=== PATIENT | female | born 1930 | race Caucasian/White ===

== ENCOUNTER 2018-06-08 12:36 | Emergency (ER) | payer MEDICARE ==
--- NOTE | 2018-06-08 13:02 | ERPHSYRPT ---
- History of Present Illness Time Seen by Provider: 06/08/18 12:51 Source: patient, family Exam Limitations: no limitations Physician History: The patient is an 88-year-old female with her family who complains that she had mildly slurred speech yesterday and was sleeping most of the day. The patient denies any pain. The patient agrees that she was sleeping more yesterday and had trouble pronouncing her "C's". Both she and her family agree that she is better today but still has some problems with her speech. They called her doctor who advised them to come to the ER. Her past medical history is significant for hypertension and high cholesterol. Timing/Duration: yesterday, improved Severity: mild Modifying Factors: Improves With: nothing Associated Symptoms: denies symptoms Allergies/Adverse Reactions: penicillin G Allergy (Verified 06/08/18 12:54) Home Medications: Aspirin 81 gm Chew [Baby Aspirin 81 mg Chew] 81 mg PO DAILY 06/08/18 [ History] Atorvastatin Calcium 10 mg PO DAILY 06/08/18 [History] Nebivolol HCl 5 MG [Bystolic 5 MG] 5 mg PO DAILY 06/08/18 [History] - Review of Systems Constitutional: Weakness Eyes: No Symptoms Ears, Nose, & Throat: No Symptoms Respiratory: No Cough, No Dyspnea Cardiac: No Chest Pain, No Edema, No Syncope Abdominal/Gastrointestinal: No Abdominal Pain, No Nausea, No Vomiting, No Diarrhea Genitourinary Symptoms: No Dysuria Musculoskeletal: No Back Pain, No Neck Pain Skin: No Rash Neurological: Speech Changes Psychological: No Symptoms Endocrine: No Symptoms Hematologic/Lymphatic: No Symptoms Immunological/Allergic: No Symptoms All Other Systems: Reviewed and Negative - Nursing Vital Signs Nursing Vital Signs: Initial Vital Signs Temperature 97.4 F 06/08/18 12:46 Pulse Rate 72 06/08/18 12:46 Respiratory Rate 18 06/08/18 12:46 Blood Pressure 164/88 06/08/18 12:46 O2 Sat by Pulse Oximetry 95 06/08/18 12:46 Pain Scale Pain Intensity 0 - Physical Exam General Appearance: no apparent distress, alert Eye Exam: PERRL/EOMI, eyes nml inspection Ears, Nose, Throat Exam: normal ENT inspection, TMs normal, pharynx normal, moist mucous membranes Neck Exam: normal inspection, non-tender, supple, full range of motion Respiratory Exam: normal breath sounds, lungs clear, No respiratory distress Cardiovascular Exam: regular rate/rhythm, normal heart sounds, normal peripheral pulses Gastrointestinal/Abdomen Exam: soft, normal bowel sounds, No tenderness, No mass Pelvic Exam: not done Rectal Exam: not done Back Exam: normal inspection, normal range of motion, No CVA tenderness, No vertebral tenderness Extremity Exam: normal inspection, normal range of motion, pelvis stable Neurologic Exam: alert, oriented x 3, cooperative, normal mood/affect, nml cerebellar function, nml station & gait, sensation nml, slurred speech (very mild), No motor deficits Skin Exam: normal color, warm, dry, No rash Lymphatic Exam: No adenopathy SpO2 Interpretation: normal Oxygen Delivery: Room Air - Course EKG Interpreted by Me: RATE, Sinus Rhythm, NORMAL AXIS, NORMAL INTERVALS, NORMAL QRS, NORMAL ST-T - CT Exams Head CT Interpretation: Negative (nonacute senile brain), Tele-radiologist Report ( per Dr Jiménez.) Ordered Tests: Active Orders 24 hr Category Date Time Status EKG-ER Only STAT Care 06/08/18 13:05 Active HEAD WITHOUT CONTRAST [CT] Stat Exams 06/08/18 13:06 Completed BMP Stat Lab 06/08/18 14:05 Received CBC W DIFF Stat Lab 06/08/18 14:05 Completed Lactic Acid Stat Lab 06/08/18 14:00 Completed Manual Differential NC Stat Lab 06/08/18 14:05 Completed UA W/RFX UR CULTURE Stat Lab 06/08/18 14:05 Received Lab/Rad Data: Laboratory Result Diagrams 06/08/18 14:05 06/08/18 14:05 Laboratory Results 06/08/18 06/08/18 06/08/18 Range/Units 14:05 14:05 14:05 WBC 7.0 (4.0-10.5) K/mm3 RBC 3.28 L (4.1-5.4) M/mm3 Hgb 11.3 L (12.0-16.0) gm/dl Hct 33.0 L (35-47) % MCV 100.6 H (78-100) fl MCH 34.4 H (26-32) pg MCHC 34.2 (32-36) g/dl RDW 22.4 H (11.5-14.0) % Plt Count 328 (150-450) K/mm3 MPV 8.9 (6-9.5) fl Sodium 143 (137-145) mmol/L Potassium 4.3 (3.5-5.1) mmol/L Chloride 105 (98-107) mmol/L Carbon Dioxide 27 (22-30) mmol/L Anion Gap 14.5 (5-15) MEQ/L BUN 16 (7-17) mg/dL Creatinine 0.79 (0.52-1.04) mg/dL Estimated GFR > 60.0 ML/MIN Glucose 94 (74-106) mg/dL Lactic Acid (0.4-2.0) Calcium 10.8 H (8.4-10.2) mg/dL Ur Collection Type CLEAN CATCH Urine Color LT.YELLOW (YELLOW) Urine Appearance CLEAR (CLEAR) Urine pH 8.0 (5-6) Ur Specific [place] 1.005 (1.005-1.025) Urine Protein NEGATIVE (Negative) Urine Ketones NEGATIVE (NEGATIVE) Urine Blood NEGATIVE (0-5) Abiodun/ul Urine Nitrite NEGATIVE (NEGATIVE) Urine Bilirubin NEGATIVE (NEGATIVE) Urine Urobilinogen NORMAL (0-1) mg/dL Ur Leukocyte Esterase NEGATIVE (NEGATIVE) Urine Culture Reflexed NO (NO) Urine Glucose NEGATIVE (NEGATIVE) mg/dL Specimen Received 06/08/18 1430 06/08/18 Range/Units 14:00 WBC (4.0-10.5) K/mm3 RBC (4.1-5.4) M/mm3 Hgb (12.0-16.0) gm/dl Hct (35-47) % MCV (78-100) fl MCH (26-32) pg MCHC (32-36) g/dl RDW (11.5-14.0) % Plt Count (150-450) K/mm3 MPV (6-9.5) fl Sodium (137-145) mmol/L Potassium (3.5-5.1) mmol/L Chloride (98-107) mmol/L Carbon Dioxide (22-30) mmol/L Anion Gap (5-15) MEQ/L BUN (7-17) mg/dL Creatinine (0.52-1.04) mg/dL Estimated GFR ML/MIN Glucose (74-106) mg/dL Lactic Acid 1.2 (0.4-2.0) Calcium (8.4-10.2) mg/dL Ur Collection Type Urine Color (YELLOW) Urine Appearance (CLEAR) Urine pH (5-6) Ur Specific [place] (1.005-1.025) Urine Protein (Negative) Urine Ketones (NEGATIVE) Urine Blood (0-5) Abiodun/ul Urine Nitrite (NEGATIVE) Urine Bilirubin (NEGATIVE) Urine Urobilinogen (0-1) mg/dL Ur Leukocyte Esterase (NEGATIVE) Urine Culture Reflexed (NO) Urine Glucose (NEGATIVE) mg/dL Specimen Received - Progress Progress: improved Counseled pt/family regarding: lab results, diagnosis, rad results - Departure Time of Disposition: 14:55 Departure Disposition: Home Clinical Impression: Tiredness Condition: Stable Critical Care Time: No Referrals: RODO SERRANO MD [Primary Care Provider] - Additional Instructions: You had a mild episode of tiredness yesterday with some very mild speech difficulty. All other lab work and your head CT showed no abnormalities. Your urinalysis was normal. Follow-up with you he r primary medical doctor as needed.
--- NOTE | 2018-06-08 13:34 | XRAY ---
Indication: Slurred speech and fatigue. Multiple contiguous axial images obtained through the head without contrast. Comparison: None Age-appropriate global atrophy and mild periventricular degenerative micro-ischemia bilaterally. No acute intracranial hemorrhage, abnormal extra-axial fluid collection, or mass effect. Fourth ventricle is midline without hydrocephalus. Bony calvarium intact. Visualized paranasal sinuses and mastoid air cells are clear. Impression: Nonacute senile brain. CT DI 67.60
[2018-06-08 14:01] VITALS: BP 151/74; PULSE 62; O2SAT 95
[2018-06-08 14:05] LABS: Hemoglobin 11.3 gm/dl (12.0-16.0); Mean Cell Volume 100.6 fl (78-100); Mean Corpuscular Hgb Concent. 34.2 g/dl (32-36); Mean Platelet Volume 8.9 fl (6-9.5); Platelet Count 328 K/mm3 (150-450); Red Blood Count 3.28 M/mm3 (4.1-5.4); Red Cell Distribution Width 22.4 % (11.5-14.0)
[2018-06-08 14:07] LABS: Mean Corpuscular Hemoglobin 34.4 pg (26-32)
[2018-06-08 14:22] LABS: ANION GAP 14.5 MEQ/L (5-15); BLOOD UREA NITROGEN 16 mg/dL (7-17); CHLORIDE 105 mmol/L (98-107); Calcium 10.8 mg/dL (8.4-10.2); Carbon Dioxide 27 mmol/L (22-30); Creatinine 1 0.79 mg/dL (0.52-1.04); Glucose 94 mg/dL (74-106); Potassium 4.3 mmol/L (3.5-5.1); SODIUM 143 mmol/L (137-145)
[2018-06-08 14:42] LABS: Appearance CLEAR (CLEAR); Bilirubin NEGATIVE (NEGATIVE); Blood NEGATIVE Ery/ul (0-5); Glucose NEGATIVE (NEGATIVE); Ketones NEGATIVE (NEGATIVE); Leukocyte Esterase NEGATIVE (NEGATIVE); Nitrite NEGATIVE (NEGATIVE); Protein,Urine Dip NEGATIVE (Negative); Specific Gravity 1.005 (1.005-1.025); Urobilinogen NORMAL mg/dL (0-1)
[2018-06-08 14:52] LABS: Basophil 1 % (0.0-1.0); Eosinophil 4 % (0.00-3.0); Lymphocytes 39 % (24-44); Monocyte 9 % (0.0-12.0); Neutrophils 47 % (36.0-66.0); Platelet Estimate NORMAL (NORMAL); Total Cells Counted 100
[2018-06-08 14:53] LABS: ANISOCYTOSIS 2+; Basophilic Stippling RARE; Hypochromia 1+; Poikilocytosis 1+; Polychromasia 1+; Schistocytes 1+
== END 2018-06-08 15:12 | disposition home or self-care (01) ==
LOC: ED 12:36
DX: R53.83 Other fatigue (principal); R53.1 Weakness; R47.81 Slurred speech; Z79.82 Long term (current) use of aspirin; Z79.899 Other long term (current) drug therapy
CPT/HCPCS: 36415; 70450; 80048; 81002; 83605; 85025; 93005; 99284

== ENCOUNTER 2018-07-04 14:06 | Inpatient (IN) | payer MEDICARE ==
[2018-07-04] MEDS ORDERED: TYLENOL 325 MG PO STA (14:23)
--- NOTE | 2018-07-04 14:29 | ERPHSYRPT ---
- History of Present Illness Time Seen by Provider: 07/04/18 14:15 Source: patient, family Exam Limitations: no limitations Physician History: patient presents with CC of sudden chills today; hasn't taken temp; no travel; no exposures; no sore throat, ear ache, head ache, cough, sob, abd pain, diarrhea or symptoms; no joint pains; had one episode of N&V x 1 this am; resolved; no prior hx; otherwise healthy Timing/Duration: today, hour(s) (2), sudden, improved Fever Severity: moderate Fever Therapy SENIOR [employer] DEVELOPER: none Associated Symptoms: nausea/vomiting (x1 earlier today) International travel in last 2 weeks: No Allergies/Adverse Reactions: penicillin G Allergy (Verified 06/08/18 12:54) Home Medications: Aspirin 81 gm Chew [Baby Aspirin 81 mg Chew] 81 mg PO DAILY 06/08/18 [ History] Atorvastatin Calcium 10 mg PO DAILY 06/08/18 [History] Nebivolol HCl 5 MG [Bystolic 5 MG] 5 mg PO DAILY 07/04/18 [History] Hx Tetanus, Diphtheria Vaccination/Date Given: Yes Hx Influenza Vaccination/Date Given: Yes Hx Pneumococcal Vaccination/Date Given: No - Review of Systems Constitutional: Fever, Chills Eyes: No Symptoms Ears, Nose, & Throat: No Symptoms Respiratory: No Cough, No Dyspnea, No Wheezing Cardiac: No Chest Pain, No Palpitations, No Syncope Abdominal/Gastrointestinal: Nausea, Vomiting (x1), No Abdominal Pain, No Diarrhea, No Constipation Genitourinary Symptoms: Frequency, No Dysuria, No Hematuria, No Hesitancy, No Incontinence, No Flank Pain Musculoskeletal: No Symptoms Skin: No Symptoms Neurological: No Symptoms Psychological: No Symptoms Endocrine: No Symptoms Hematologic/Lymphatic: No Symptoms Immunological/Allergic: No Symptoms - Past Medical History Pertinent Past Medical History: Yes Cardiac History: High Cholesterol, Hypertension - Past Surgical History Past Surgical History: Yes Female Surgical History: Hysterectomy - Social History Smoking Status: Never smoker Exposure to second hand smoke: No Alcohol Use: None Drug Use: none Patient Lives Alone: No - Female History Hx Now: No - Nursing Vital Signs Nursing Vital Signs: Initial Vital Signs Temperature 102.1 F 07/04/18 14:23 Pulse Rate 94 H 07/04/18 14:23 Respiratory Rate 20 07/04/18 14:23 Blood Pressure 111/55 07/04/18 14:23 O2 Sat by Pulse Oximetry 89 L 07/04/18 14:23 Pain Scale Pain Intensity 0 - Physical Exam General Appearance: mild distress, alert, thin Eye Exam: PERRL/EOMI, eyes nml inspection, No photophobia ENT Exam: normal ENT inspection, no apparent trauma, hearing grossly normal, TMs normal, pharynx normal Neck Exam: normal inspection, non-tender, supple, full range of motion, No JVD, No lymphadenopathy (R), No lymphadenopathy (L), No stiff neck, No carotid bruit , No meningismus Respiratory Exam: normal breath sounds, chest non-tender, lungs clear, no respiratory distress, No crackles/rales, No rhonchi, No wheezing Cardiovascular/Chest Exam: normal heart sounds, regular rate/rhythm, normal peripheral pulses, No murmur, No edema, No JVD Gastrointestinal/Abdominal Exam: soft, non tender, no distention, no mass, no guarding, no organomegaly, no pulsatile mass, normal bowel sounds Pelvic Exam: deferred Rectal Exam: deferred Extremity Exam: non-tender, normal range of motion, normal inspection, normal capillary refill, no calf tenderness, no pedal edema Neurologic Exam: alert, oriented x 3, cooperative, guard immigration II-XII nml as tested, normal mood/affect Skin Exam: normal color, warm (increased), dry, No rash, No petechiae, No cyanosis Lymphatic: No adenopathy SpO2 Interpretation: normal SpO2: 94 Oxygen Delivery: Room Air - Course Nursing assessment & vital signs reviewed: Yes - Radiology Exams Chest X-ray Interpretation: Reviewed by me, Teleradiologist Report, No Pneumonia, No Pneumothorax, Nml Heart Size, No Infiltrates, Other (aging chest; old right rib fractures, hyperinflation) Ordered Tests: Active Orders 24 hr Category Date Time Status Up With Assistance ROUTINE Activity 07/04/18 16:18 Ordered Call Admit Doctor for Orders ON ADMISSION Care 07/04/18 16:20 Ordered Loop Drier Operator STAT Care 07/04/18 14:21 Active Cath for Specimen-Straight STAT Care 07/04/18 14:23 Active Code Status Order ROUTINE Care 07/04/18 16:18 Ordered Fall Protocol ROUTINE Care 07/04/18 16:20 Ordered IV Care Q6H Care 07/04/18 16:18 Ordered IV Insertion STAT Care 07/04/18 14:[address] in Observation ROUTINE Care 07/04/18 16:18 Ordered Pulse Oximetry (ED) STAT Care 07/04/18 14:21 Active Re-Check Vital Signs STAT Care 07/04/18 14:23 Active Rectal Temperature STAT Care 07/04/18 14:23 Active Evan Alfaro, Apply ROUTINE Care 07/04/18 16:18 Ordered Weight,Daily 0600 Care 07/04/18 16:18 Ordered Regular Diet Diet 07/04/18 Dinner Ordered CHEST 1 VIEW (PORTABLE) Stat Exams 07/04/18 14:21 Completed BLOOD CULTURE Stat Lab 07/04/18 14:35 Received CBC W DIFF Stat Lab 07/04/18 14:35 Completed CMP Stat Lab 07/04/18 14:35 Completed CULTURE,URINE Stat Lab 07/04/18 15:00 Received Lactic Acid Stat Lab 07/04/18 14:35 Completed Manual Differential NC Stat Lab 07/04/18 14:35 Completed UA W/ MICROSCOPIC Stat Lab 07/04/18 15:00 Completed Oxygen NASAL CANNULA 2 lpm RT 07/04/18 16:18 Ordered Pulse Oximetry CONTINUOUS RT 07/04/18 16:21 Ordered Transfer Order Routine Transfer 07/04/18 Ordered Medication Summary Generic Name Dose Route Start Last Admin Trade Name Freq PRN Reason Stop Dose Admin Acetaminophen 650 mg 07/04/18 16:18 Tylenol 325 Mg PO 08/03/18 16:17 Q4H PRN PRN PAIN AND/OR FEVER Sodium Chloride 1,000 mls @ 100 mls/hr 07/04/18 14:30 07/04/18 14:42 Sodium Chloride 0.9% 1000 Ml IV 08/03/18 14:29 100 mls/hr .Q10H MANNY Administration Sodium Chloride 1,000 mls @ 100 mls/hr 07/04/18 16:30 Sodium Chloride 0.9% 1000 Ml IV 08/03/18 16:29 .Q10H MANNY Discontinued Medications Generic Name Dose Route Start Last Admin Trade Name Freq PRN Reason Stop Dose Admin Acetaminophen 650 mg 07/04/18 14:23 07/04/18 14:42 Tylenol 325 Mg PO 07/04/18 14:24 650 mg STAT STA Administration Acetaminophen Confirm 07/04/18 14:40 Tylenol 325 Mg Administered 07/04/18 14:41 Dose 650 mg .ROUTE .STK-MED ONE Lab/Rad Data: Laboratory Result Diagrams 07/04/18 14:35 07/04/18 14:35 Laboratory Results 07/04/18 07/04/18 07/04/18 Range/Units 15:00 14:40 14:35 WBC (4.0-10.5) K/mm3 RBC (4.1-5.4) M/mm3 Hgb (12.0-16.0) gm/dl Hct (35-47) % MCV (78-100) fl MCH (26-32) pg MCHC (32-36) g/dl RDW (11.5-14.0) % Plt Count (150-450) K/mm3 MPV (6-9.5) fl Sodium 137 (137-145) mmol/L Potassium 4.0 (3.5-5.1) mmol/L Chloride 103 (98-107) mmol/L Carbon Dioxide 25 (22-30) mmol/L Anion Gap 13.4 (5-15) MEQ/L BUN 16 (7-17) mg/dL Creatinine 0.78 (0.52-1.04) mg/dL Estimated GFR > 60.0 ML/MIN Glucose 109 H (74-106) mg/dL Lactic Acid (0.4-2.0) Calcium 10.6 H (8.4-10.2) mg/dL Total Bilirubin 1.10 (0.2-1.3) mg/dL AST 26 (14-36) U/L ALT 16 (0-35) U/L Alkaline Phosphatase 97 (38-126) U/L Serum Total Protein 7.4 (6.3-8.2) g/dL Albumin 4.3 (3.5-5.0) g/dL Ur Collection Type CATH Urine Color YELLOW (YELLOW) Urine Appearance CLOUDY (CLEAR) Urine pH 8.0 (5-6) Ur Specific [place] 1.010 (1.005-1.025) Urine Protein TRACE (Negative) Urine Ketones MODERATE (NEGATIVE) Urine Blood 50 (0-5) Abiodun/ul Urine Nitrite NEGATIVE (NEGATIVE) Urine Bilirubin NEGATIVE (NEGATIVE) Urine Urobilinogen NORMAL (0-1) mg/dL Ur Leukocyte Esterase TRACE (NEGATIVE) Urine Microscopic RBC 2-5 (0-2) /HPF Urine Microscopic WBC 50-100 (0-5) /HPF Ur Epithelial Cells RARE (FEW) /HPF Urine Bacteria MANY (NEGATIVE) /HPF Hyaline Casts 0-2 (0-2) /LPF Urine Glucose NEGATIVE (NEGATIVE) mg/dL Influenza Type A Ag NEGATIVE (NEGATIVE) Influenza Type B Ag NEGATIVE (NEGATIVE) RSV (PCR) NEGATIVE (Negative) Specimen Received 07-04-18 1515 07/04/18 07/04/18 Range/Units 14:35 14:35 WBC 12.4 H (4.0-10.5) K/mm3 RBC 3.20 L (4.1-5.4) M/mm3 Hgb 11.1 L (12.0-16.0) gm/dl Hct 32.2 L (35-47) % MCV 100.6 H (78-100) fl MCH 34.6 H (26-32) pg MCHC 34.5 (32-36) g/dl RDW 22.1 H (11.5-14.0) % Plt Count 323 (150-450) K/mm3 MPV 9.2 (6-9.5) fl Sodium (137-145) mmol/L Potassium (3.5-5.1) mmol/L Chloride (98-107) mmol/L Carbon Dioxide (22-30) mmol/L Anion Gap (5-15) MEQ/L BUN (7-17) mg/dL Creatinine (0.52-1.04) mg/dL Estimated GFR ML/MIN Glucose (74-106) mg/dL Lactic Acid 1.0 (0.4-2.0) Calcium (8.4-10.2) mg/dL Total Bilirubin (0.2-1.3) mg/dL AST (14-36) U/L ALT (0-35) U/L Alkaline Phosphatase (38-126) U/L Serum Total Protein (6.3-8.2) g/dL Albumin (3.5-5.0) g/dL Ur Collection Type Urine Color (YELLOW) Urine Appearance (CLEAR) Urine pH (5-6) Ur Specific [place] (1.005-1.025) Urine Protein (Negative) Urine Ketones (NEGATIVE) Urine Blood (0-5) Abiodun/ul Urine Nitrite (NEGATIVE) Urine Bilirubin (NEGATIVE) Urine Urobilinogen (0-1) mg/dL Ur Leukocyte Esterase (NEGATIVE) Urine Microscopic RBC (0-2) /HPF Urine Microscopic WBC (0-5) /HPF Ur Epithelial Cells (FEW) /HPF Urine Bacteria (NEGATIVE) /HPF Hyaline Casts (0-2) /LPF Urine Glucose (NEGATIVE) mg/dL Influenza Type A Ag (NEGATIVE) Influenza Type B Ag (NEGATIVE) RSV (PCR) (Negative) Specimen Received reviewed - Progress Progress: improved, re-examined (after meds) Progress Note: 07/04/18 14:30 will start an IV and do Fever work up, monitor and recheck temp was 102.3 rectally and will give tylenol 07/04/18 16:04 fever down; CXR NAD; labs show elevated WBC of 12; infu test all neg; lactic acid ok; UA shows infection on cath specimen and cultured; renal function and lytes ok; patient dropped her O2 sat on RA to 88 at rest and placed on O2 at 2 l nc and improved to 95% rechecked with family at bedside; reviewed findings and dr Serrano consulted for disposition 07/04/18 16:16 Dr Serrano consulted and will admit; Patient and family informed 07/04/18 16:23 started on Rocephin in ED Discussed with : Shelly (consulted and will palce in OBS) Counseled pt/family regarding: lab results, diagnosis, need for follow-up, rad results - Departure Time of Disposition: 16:17 Departure Disposition: Observation Clinical Impression: FUO (fever of unknown origin), UTI (urinary tract infection), low pulse ox 88 RA Condition: Fair Critical Care Time: No Referrals: RODO SERRANO MD [Primary Care Provider] -
[2018-07-04] MEDS ORDERED: Sodium Chloride 0.9% 1000 ML 1,000 ML IV SCH ×2 (14:30→16:30)
[2018-07-04] MEDS ORDERED: TYLENOL 325 MG ONE (14:40)
[2018-07-04 14:53] LABS: Hematocrit 32.2 % (35-47); Hemoglobin 11.1 gm/dl (12.0-16.0); Mean Cell Volume 100.6 fl (78-100); Mean Corpuscular Hgb Concent. 34.5 g/dl (32-36); Mean Platelet Volume 9.2 fl (6-9.5); Platelet Count 323 K/mm3 (150-450); Red Cell Distribution Width 22.1 % (11.5-14.0); White Blood Count 12.4 K/mm3 (4.0-10.5)
[2018-07-04 15:10] LABS: Mean Corpuscular Hemoglobin 34.6 pg (26-32)
[2018-07-04 15:16] LABS: Appearance CLOUDY (CLEAR); Bilirubin NEGATIVE (NEGATIVE); Blood 50 Ery/ul (0-5); Glucose NEGATIVE (NEGATIVE); Ketones MODERATE (NEGATIVE); Leukocyte Esterase TRACE (NEGATIVE); Nitrite NEGATIVE (NEGATIVE); Protein,Urine Dip TRACE (Negative); Urobilinogen NORMAL mg/dL (0-1)
[2018-07-04 15:17] LABS: Bacteria MANY /HPF (NEGATIVE); Epithelial Cells RARE /HPF (FEW); Hyaline Casts 0-2 /LPF (0-2); WBC 50-100 /HPF (0-5)
--- NOTE | 2018-07-04 15:17 | XRAY ---
Indication: Possible sepsis. Comparison: None Portable chest hyperinflated and clear. Heart is not enlarged for AP portable technique. Thoracic aorta mildly arteriosclerotic with descending tortuosity. Bony thorax intact with mild osteopenia, degenerative changes, and old right upper rib fractures. Impression: Nonacute hyperinflated chest with chronic features.
[2018-07-04 15:27] LABS: ALBUMIN 4.3 g/dL (3.5-5.0); ALKALINE PHOSPHATASE 97 U/L (38-126); ANION GAP 13.4 MEQ/L (5-15); BLOOD UREA NITROGEN 16 mg/dL (7-17); CHLORIDE 103 mmol/L (98-107); Calcium 10.6 mg/dL (8.4-10.2); Carbon Dioxide 25 mmol/L (22-30); Creatinine 1 0.78 mg/dL (0.52-1.04); Glucose 109 mg/dL (74-106); SGOT/AST 26 U/L (14-36); SGPT/ALT 16 U/L (0-35); SODIUM 137 mmol/L (137-145); Total Protein 7.4 g/dL (6.3-8.2)
[2018-07-04 15:28] LABS: INFLUENZA A NEGATIVE (NEGATIVE); INFLUENZA B NEGATIVE (NEGATIVE); RESPIRATORY SYNCTIAL VIRUS NEGATIVE (Negative)
[2018-07-04] MEDS ORDERED: TYLENOL 325 MG PO PRN (16:18)
[2018-07-04] MEDS ORDERED: ROCEPHIN 1 Gm-D5w 50 ml Bag** 1 G/50 ML IVPB IV ONE ×2 (16:22→16:24)
[2018-07-04 19:40] LABS: ANISOCYTOSIS 2+; BAND 19 % (0.0-2.0); Basophilic Stippling 1+; Eosinophil 1 % (0.00-3.0); Hypochromia 1+; Lymphocytes 7 % (24-44); Macrocytosis 1+; Monocyte 8 % (0.0-12.0); Neutrophils 65 % (36.0-66.0); Poikilocytosis 1+; Total Cells Counted 100
[2018-07-04 19:41] LABS: Platelet Estimate NORMAL (NORMAL); Schistocytes 1+
[2018-07-04] MEDS ORDERED: Zocor 10MG PO ONE (22:00)
[2018-07-04] MEDS ORDERED: BABY ASPIRIN 81 MG CHEW PO ONE (22:00)
[2018-07-04] MEDS ORDERED: LEVOFLOXACIN 750MG/150ML D5W 750 MG/150 ML BAG IV ONE (22:26)
[2018-07-04] MEDS ORDERED: Sodium Chloride 0.9% 1000 ML 1,000 ML IV STA (22:31)
[2018-07-04 23:02] LABS: A-aADO2 94; ABG HEMOGLOBIN 10.9; ABG POTASSIUM 4.8 (3.5-5.1); ABG SITE LEFT RADIAL; ALLEN TEST OK? YES; ARTERIAL BLD GAS O2 SATURATION 90.7 % (95-100); ARTERIAL BLOOD GAS BASE EXCESS -4.3 (-2.0-2.0); ARTERIAL BLOOD GAS FIO2 28 %; ARTERIAL BLOOD GAS PCO2 42 mmHg (35-45); ARTERIAL BLOOD GAS PO2 53 mmHg (75-100); ARTERIAL BLOOD GAS pH 7.32 (7.35-7.45); CARBOXYHEMOGLOBIN 2.8 % THgb (0.0-6.9); HCO3- 21.6 (22-28); HGB O2 SAT 87.3 g/dF (94-100); Methhemoglobin 0.9 % (1.4-1.5); paO2 pAO1 0.36
[2018-07-04 23:10] LABS: Lactic Acid 4.5 (0.4-2.0)
[2018-07-04] MEDS: ENOXAPARIN SODIUM SQ SCH (23:33)
[2018-07-05] MEDS ORDERED: Sodium Chloride 0.9% 1000 ML 1,000 ML IV SCH
[2018-07-05] MEDS: Sodium Chloride 0.9% 1000 ML 1,000 ML IV SCH ×3 (02:23→18:40)
--- NOTE | 2018-07-05 08:52 | PCM.HP ---
History of Present Illness - Chief Complaint Chief Complaint: c/o fever with chills for 1 day History of Present Illness: is a 88 year old female patient presents with CC of sudden chills today ; hasn't taken temp; no travel; no exposures; no sore throat, ear ache, head ache, cough, sob, abd pain, diarrhea or symptoms; no joint pains; had one episode of N&V x 1 this am; resolved; no prior hx; otherwise healthy Timing/Duration: today, hour(s) (2), sudden, improved Fever Severity: moderate Fever Therapy UNDERWRITING SALES REPRESENTATIVE: none Associated Symptoms: nausea/vomiting (x1 earlier today). - Review of Systems Constitutional: Fever, Chills Eyes: No Symptoms Ears, Nose, & Throat: No Symptoms Respiratory: No Cough, No Short Of Breath Cardiac: No Chest Pain, No Edema, No Syncope Abdominal/Gastrointestinal: No Abdominal Pain, No Nausea, No Vomiting, No Diarrhea Genitourinary Symptoms: No Dysuria Musculoskeletal: No Back Pain, No Neck Pain Skin: No Rash Neurological: No Dizziness, No Focal Weakness, No Sensory Changes Psychological: No Symptoms Endocrine: No Symptoms Hematologic/Lymphatic: No Symptoms Immunological/Allergic: No Symptoms Medications & Allergies Home Medications: Home Medication List Aspirin 81 gm Chew [Baby Aspirin 81 mg Chew] 81 mg PO HS 06/08/18 [ History Confirmed 07/04/18] Atorvastatin Calcium 10 mg PO HS 06/08/18 [History Confirmed 07/04/18] Nebivolol HCl 5 MG [Bystolic 5 MG] 5 mg PO DAILY 07/04/18 [History Confirmed 07/04/18] Allergies/Adverse Reactions: Allergies Allergy/AdvReac Type Severity Reaction Status Date / Time penicillin G Allergy Verified 06/08/18 12:54 - Past Medical History Past Medical History: Yes Neurological History: No Pertinent History ENT History: Cataracts, Macular Degeneration Cardiac History: High Cholesterol, Hypertension Respiratory History: No Pertinent History Endocrine Medical History: No Pertinent History Musculoskelatal History: Arthritis GI Medical History: No Pertinent History History: No Pertinent History Pyscho-Social History: No Pertinent History Reproductive Disorders: No Pertinent History - Female History Are you now?: No - Past Surgical History Past Surgical History: Yes Neuro Surgical History: No Pertinent History, Brain Shunt Cardiac History: No Pertinent History Respiratory Surgery: No Pertinent History GI Surgical History: No Pertinent History Musculskeletal Surgical Hx: No Pertinent History Female Surgical History: Hysterectomy - Social History Smoking Status: Former smoker Exposure to second hand smoke: No Alcohol: None Drug Use: none - Physical Exam Vital Signs: Vital Signs - 24 hr Temp Pulse Resp BP Pulse Ox 07/05/18 07:26 98 07/05/18 07:19 98.2 F 80 20 104/64 96 07/05/18 04:23 98.5 F 76 18 98/53 97 07/05/18 00:25 99.0 F 07/04/18 23:33 103.1 F 100 H 20 109/56 95 07/04/18 22:15 96 07/04/18 19:35 98.6 F 67 20 97/50 96 07/04/18 19:16 96 07/04/18 17:45 99 F 76 20 92/49 86 L 07/04/18 17:38 76 18 91 L 07/04/18 17:37 91 L 07/04/18 16:54 100.4 F 70 18 107/51 95 07/04/18 16:23 94 L 07/04/18 16:17 100.6 F 74 18 107/51 97 07/04/18 15:35 100.6 F 77 18 123/75 90 L 07/04/18 14:59 102.1 F 85 20 111/55 94 L 07/04/18 14:23 102.1 F 94 H 20 111/55 89 L Oxygen-Last 24 hours O2 Percentage 5 Liters = 40% O2 Percentage 5 Liters = 40% O2 Percentage 5 Liters = 40% O2 Percentage 2 Liters = 28% O2 Percentage 2 Liters = 28% O2 Percentage 2 Liters = 28% General Appearance: no apparent distress, alert Neurologic Exam: alert, oriented x 3, cooperative, normal mood/affect, nml cerebellar function, nml station & gait, sensation nml, No motor deficits Eye Exam: PERRL/EOMI, eyes nml inspection Ears, Nose, Throat Exam: normal ENT inspection, TMs normal, pharynx normal, moist mucous membranes Neck Exam: normal inspection, non-tender, supple, full range of motion Respiratory Exam: normal breath sounds, lungs clear, No respiratory distress Cardiovascular Exam: regular rate/rhythm, normal heart sounds, normal peripheral pulses Gastrointestinal/Abdomen Exam: soft, normal bowel sounds, No tenderness, No mass Back Exam: normal inspection, normal range of motion, No CVA tenderness, No vertebral tenderness Extremity Exam: normal inspection, normal range of motion, pelvis stable Skin Exam: normal color, warm, dry, No rash Lymphatic Exam: No adenopathy Results - Labs Lab/Micro Results: Lab Results-Last 24 Hours 07/04/18 07/04/18 07/04/18 Range/Units 14:35 14:35 14:35 WBC 12.4 H (4.0-10.5) K/mm3 RBC 3.20 L (4.1-5.4) M/mm3 Hgb 11.1 L (12.0-16.0) gm/dl Hct 32.2 L (35-47) % MCV 100.6 H (78-100) fl MCH 34.6 H (26-32) pg MCHC 34.5 (32-36) g/dl RDW 22.1 H (11.5-14.0) % Plt Count 323 (150-450) K/mm3 MPV 9.2 (6-9.5) fl Segmented Neutrophils 65 (36.0-66.0) % Band Neutrophils 19 H (0.0-2.0) % Lymphocytes (Manual) 7 L (24-44) % Monocytes (Manual) 8 (0.0-12.0) % Eosinophils (Manual) 1 (0.00-3.0) % Hypochromia 1+ Platelet Estimate NORMAL (NORMAL) RBC Morphology ABNORMAL Poikilocytosis 1+ Basophilic Stippling 1+ Anisocytosis 2+ Macrocytosis 1+ Schistocytes 1+ D-Dimer (215-500) ng/mL Puncture Site pCO2 (35-45) mmHg pO2 (75-100) mmHg Base Excess (-2.0-2.0) O2 Saturation (94-100) g/dF ABG pH (7.35-7.45) ABG HCO3 (22-28) ABG O2 Sat (Measured) (95-100) % Param Test A-a Gradient a/A Ratio Hemoglobin Carboxyhemoglobin (0.0-6.9) % THgb Methemoglobin (1.4-1.5) % Temperature C POC O2 Flow Rate % Sodium 137 (137-145) mmol/L Potassium 4.0 (3.5-5.1) mmol/L Chloride 103 (98-107) mmol/L Carbon Dioxide 25 (22-30) mmol/L Anion Gap 13.4 (5-15) MEQ/L BUN 16 (7-17) mg/dL Creatinine 0.78 (0.52-1.04) mg/dL Estimated GFR > 60.0 ML/MIN Glucose 109 H (74-106) mg/dL Lactic Acid 1.0 (0.4-2.0) Calcium 10.6 H (8.4-10.2) mg/dL Total Bilirubin 1.10 (0.2-1.3) mg/dL AST 26 (14-36) U/L ALT 16 (0-35) U/L Alkaline Phosphatase 97 (38-126) U/L Serum Total Protein 7.4 (6.3-8.2) g/dL Albumin 4.3 (3.5-5.0) g/dL Ur Collection Type Urine Color (YELLOW) Urine Appearance (CLEAR) Urine pH (5-6) Ur Specific [place] (1.005-1.025) Urine Protein (Negative) Urine Ketones (NEGATIVE) Urine Blood (0-5) Abiodun/ul Urine Nitrite (NEGATIVE) Urine Bilirubin (NEGATIVE) Urine Urobilinogen (0-1) mg/dL Ur Leukocyte Esterase (NEGATIVE) Urine Microscopic RBC (0-2) /HPF Urine Microscopic WBC (0-5) /HPF Ur Epithelial Cells (FEW) /HPF Urine Bacteria (NEGATIVE) /HPF Hyaline Casts (0-2) /LPF Urine Glucose (NEGATIVE) mg/dL Influenza Type A Ag (NEGATIVE) Influenza Type B Ag (NEGATIVE) RSV (PCR) (Negative) Specimen Received 07/04/18 07/04/18 07/04/18 Range/Units 14:40 15:00 22:05 WBC (4.0-10.5) K/mm3 RBC (4.1-5.4) M/mm3 Hgb (12.0-16.0) gm/dl Hct (35-47) % MCV (78-100) fl MCH (26-32) pg MCHC (32-36) g/dl RDW (11.5-14.0) % Plt Count (150-450) K/mm3 MPV (6-9.5) fl Segmented Neutrophils (36.0-66.0) % Band Neutrophils (0.0-2.0) % Lymphocytes (Manual) (24-44) % Monocytes (Manual) (0.0-12.0) % Eosinophils (Manual) (0.00-3.0) % Hypochromia Platelet Estimate (NORMAL) RBC Morphology Poikilocytosis Basophilic Stippling Anisocytosis Macrocytosis Schistocytes D-Dimer (215-500) ng/mL Puncture Site LEFT RADIAL pCO2 42 (35-45) mmHg pO2 53 L (75-100) mmHg Base Excess -4.3 L (-2.0-2.0) O2 Saturation 87.3 L (94-100) g/dF ABG pH 7.32 L (7.35-7.45) ABG HCO3 21.6 L (22-28) ABG O2 Sat (Measured) 90.7 L (95-100) % Param Test YES A-a Gradient 94 a/A Ratio 0.36 Hemoglobin 10.9 Carboxyhemoglobin 2.8 (0.0-6.9) % THgb Methemoglobin 0.9 L (1.4-1.5) % Temperature 37.0 C POC O2 Flow Rate 28 % Sodium (137-145) mmol/L Potassium 4.8 (3.5-5.1) mmol/L Chloride (98-107) mmol/L Carbon Dioxide (22-30) mmol/L Anion Gap (5-15) MEQ/L BUN (7-17) mg/dL Creatinine (0.52-1.04) mg/dL Estimated GFR ML/MIN Glucose (74-106) mg/dL Lactic Acid (0.4-2.0) Calcium (8.4-10.2) mg/dL Total Bilirubin (0.2-1.3) mg/dL AST (14-36) U/L ALT (0-35) U/L Alkaline Phosphatase (38-126) U/L Serum Total Protein (6.3-8.2) g/dL Albumin (3.5-5.0) g/dL Ur Collection Type CATH Urine Color YELLOW (YELLOW) Urine Appearance CLOUDY (CLEAR) Urine pH 8.0 (5-6) Ur Specific [place] 1.010 (1.005-1.025) Urine Protein TRACE (Negative) Urine Ketones MODERATE (NEGATIVE) Urine Blood 50 (0-5) Abiodun/ul Urine Nitrite NEGATIVE (NEGATIVE) Urine Bilirubin NEGATIVE (NEGATIVE) Urine Urobilinogen NORMAL (0-1) mg/dL Ur Leukocyte Esterase TRACE (NEGATIVE) Urine Microscopic RBC 2-5 (0-2) /HPF Urine Microscopic WBC 50-100 (0-5) /HPF Ur Epithelial Cells RARE (FEW) /HPF Urine Bacteria MANY (NEGATIVE) /HPF Hyaline Casts 0-2 (0-2) /LPF Urine Glucose NEGATIVE (NEGATIVE) mg/dL Influenza Type A Ag NEGATIVE (NEGATIVE) Influenza Type B Ag NEGATIVE (NEGATIVE) RSV (PCR) NEGATIVE (Negative) Specimen Received 07-04-18 1515 07/04/18 07/04/18 07/05/18 Range/Units 22:05 22:45 01:55 WBC (4.0-10.5) K/mm3 RBC (4.1-5.4) M/mm3 Hgb (12.0-16.0) gm/dl Hct (35-47) % MCV (78-100) fl MCH (26-32) pg MCHC (32-36) g/dl RDW (11.5-14.0) % Plt Count (150-450) K/mm3 MPV (6-9.5) fl Segmented Neutrophils (36.0-66.0) % Band Neutrophils (0.0-2.0) % Lymphocytes (Manual) (24-44) % Monocytes (Manual) (0.0-12.0) % Eosinophils (Manual) (0.00-3.0) % Hypochromia Platelet Estimate (NORMAL) RBC Morphology Poikilocytosis Basophilic Stippling Anisocytosis Macrocytosis Schistocytes D-Dimer 2579 H* (215-500) ng/mL Puncture Site pCO2 (35-45) mmHg pO2 (75-100) mmHg Base Excess (-2.0-2.0) O2 Saturation (94-100) g/dF ABG pH (7.35-7.45) ABG HCO3 (22-28) ABG O2 Sat (Measured) (95-100) % Param Test A-a Gradient a/A Ratio Hemoglobin Carboxyhemoglobin (0.0-6.9) % THgb Methemoglobin (1.4-1.5) % Temperature C POC O2 Flow Rate % Sodium (137-145) mmol/L Potassium (3.5-5.1) mmol/L Chloride (98-107) mmol/L Carbon Dioxide (22-30) mmol/L Anion Gap (5-15) MEQ/L BUN (7-17) mg/dL Creatinine (0.52-1.04) mg/dL Estimated GFR ML/MIN Glucose (74-106) mg/dL Lactic Acid 4.5 H 0.7 (0.4-2.0) Calcium (8.4-10.2) mg/dL Total Bilirubin (0.2-1.3) mg/dL AST (14-36) U/L ALT (0-35) U/L Alkaline Phosphatase (38-126) U/L Serum Total Protein (6.3-8.2) g/dL Albumin (3.5-5.0) g/dL Ur Collection Type Urine Color (YELLOW) Urine Appearance (CLEAR) Urine pH (5-6) Ur Specific [place] (1.005-1.025) Urine Protein (Negative) Urine Ketones (NEGATIVE) Urine Blood (0-5) Abiodun/ul Urine Nitrite (NEGATIVE) Urine Bilirubin (NEGATIVE) Urine Urobilinogen (0-1) mg/dL Ur Leukocyte Esterase (NEGATIVE) Urine Microscopic RBC (0-2) /HPF Urine Microscopic WBC (0-5) /HPF Ur Epithelial Cells (FEW) /HPF Urine Bacteria (NEGATIVE) /HPF Hyaline Casts (0-2) /LPF Urine Glucose (NEGATIVE) mg/dL Influenza Type A Ag (NEGATIVE) Influenza Type B Ag (NEGATIVE) RSV (PCR) (Negative) Specimen Received Microbiology 07/04/18 14:35 Blood Culture - Preliminary Blood NO GROWTH TO DATE 07/04/18 14:35 Blood Culture - Preliminary Blood NO GROWTH TO DATE 07/04/18 15:00 Urine Culture - Preliminary Catherized GRAM NEGATIVE ID AND SENSITIVITY PENDING - Radiology Impressions Radiology Exams & Impressions: Radiology Procedures Category Date Time Status CHEST 1 VIEW (PORTABLE) Stat Exams 07/04/18 14:21 Completed - Other Procedures and Tests Respiratory Therapy 07/04/18 17:38 Respiratory Therapy Assessment ONCE 07/04/18 23:14 Oxygen OXYMASK-LPM 5% Assessment/Plan (1) UTI (urinary tract infection) Current Visit: Yes Status: Acute Onset Date: ~07/05/18 Qualifiers: Urinary tract infection type: acute pyelonephritis Qualified Code(s): N10 - Acute pyelonephritis Assessment & Plan: Last Vital Signs Temp 98.2 F 07/05/18 07:19 Pulse 80 07/05/18 07:19 Resp 20 07/05/18 07:19 BP 104/64 07/05/18 07:19 Pulse Ox 98 07/05/18 07:26 Allergies penicillin G Allergy (Verified 06/08/18 12:54) Active Medications Acetaminophen (Tylenol 325 Mg) 650 mg PO Q4H PRN PRN PRN Reason: PAIN AND/OR FEVER Stop: 08/03/18 16:17 Last Admin: 07/04/18 23:17 Dose: 650 mg Aspirin (Ecotrin 81 Mg) 81 mg PO HS [facility] Stop: 08/04/18 21:59 Enoxaparin Sodium (Enoxaparin Sodium) 40 mg SQ Q12HT MANNY Stop: 08/03/18 23:27 Last Admin: 07/04/18 23:33 Dose: 40 mg Ceftriaxone Sodium/Dextrose (Rocephin 1 Gm-D5w 50 Ml Bag) 1 g in 50 mls @ 100 mls/hr IV Q24H10 MANNY Stop: 08/04/18 09:59 Levofloxacin/Dextrose (Levaquin 250mg/50ml D5w) 250 mg in 50 mls @ 50 mls/hr IV Q24H22 MANNY Stop: 08/04/18 21:59 Sodium Chloride (Sodium Chloride 0.9% 1000 Ml) 1,000 mls @ 150 mls/hr IV .Q6H40M [facility] Stop: 08/04/18 00:59 Last Admin: 07/05/18 02:23 Dose: 150 mls/hr Nebivolol (Bystolic 5 Mg) 5 mg PO DAILY MANNY Stop: 08/04/18 09:59 Simvastatin (Zocor 10mg) 10 mg PO HS [facility] Stop: 08/04/18 21:59 Intake & Output 07/04/18 07/05/18 11:59 11:59 Intake Total 6560 Output Total 725 Balance 5835 Weight 63.4 kg Orders 07/04/18 17:38 Respiratory Therapy Assessment ONCE 07/04/18 22:30 Catheter Care Record Q6H [place] [Catheter-[place]] STAT 07/04/18 22:32 Telemetry Q4H 07/04/18 23:06 Infection Control Consult ROUTINE 07/04/18 23:14 Oxygen OXYMASK-LPM 5% 07/04/18 23:29 Enoxaparin Sodium [Enoxaparin Sodium] 40 mg SQ Q12HT 07/04/18 23:37 SCD's [Sequential Compression Device] Q6H 07/04/18 Dinner Regular Diet 07/05/18 01:00 NaCl 0.9% 1000 ml [Sodium Chloride 0.9% 1000 ML] 1,000 ml IV 150 mls/hr 07/05/18 10:00 Ceftriaxone 1 GM/50 ML PREMIX* [ROCEPHIN 1 Gm-D5w 50 ml Bag] 1 g in 50 ml IV Q24H10 Nebivolol HCl 5 MG [Bystolic 5 MG] 5 mg PO DAILY 07/05/18 22:00 Aspirin EC 81 mg [Ecotrin 81 mg] 81 mg PO HS Levofloxacin [Levaquin 250MG/50ML D5W] 250 mg in 50 ml IV Q24H22 Simvastatin 10 mg [Zocor 10MG] 10 mg PO HS Lab Tests 07/04/18 07/04/18 07/04/18 14:35 14:35 14:35 WBC 12.4 H RBC 3.20 L Hgb 11.1 L Hct 32.2 L MCV 100.6 H MCH 34.6 H MCHC 34.5 RDW 22.1 H Plt Count 323 MPV 9.2 Segmented Neutrophils 65 Band Neutrophils 19 H Lymphocytes (Manual) 7 L Monocytes (Manual) 8 Eosinophils (Manual) 1 Hypochromia 1+ Platelet Estimate NORMAL RBC Morphology ABNORMAL Poikilocytosis 1+ Basophilic Stippling 1+ Anisocytosis 2+ Macrocytosis 1+ Schistocytes 1+ D-Dimer Puncture Site pCO2 pO2 Base Excess O2 Saturation ABG pH ABG HCO3 ABG O2 Sat (Measured) Param Test A-a Gradient a/A Ratio Hemoglobin Carboxyhemoglobin Methemoglobin Temperature POC O2 Flow Rate Sodium 137 Potassium 4.0 Chloride 103 Carbon Dioxide 25 Anion Gap 13.4 BUN 16 Creatinine 0.78 Estimated GFR > 60.0 Glucose 109 H Lactic Acid 1.0 Calcium 10.6 H Total Bilirubin 1.10 AST 26 ALT 16 Alkaline Phosphatase 97 Serum Total Protein 7.4 Albumin 4.3 Ur Collection Type Urine Color Urine Appearance Urine pH Ur Specific [place] Urine Protein Urine Ketones Urine Blood Urine Nitrite Urine Bilirubin Urine Urobilinogen Ur Leukocyte Esterase Urine Microscopic RBC Urine Microscopic WBC Ur Epithelial Cells Urine Bacteria Hyaline Casts Urine Glucose Influenza Type A Ag Influenza Type B Ag RSV (PCR) Specimen Received 07/04/18 07/04/18 07/04/18 14:40 15:00 22:05 WBC RBC Hgb Hct MCV MCH MCHC RDW Plt Count MPV Segmented Neutrophils Band Neutrophils Lymphocytes (Manual) Monocytes (Manual) Eosinophils (Manual) Hypochromia Platelet Estimate RBC Morphology Poikilocytosis Basophilic Stippling Anisocytosis Macrocytosis Schistocytes D-Dimer Puncture Site LEFT RADIAL pCO2 42 pO2 53 L Base Excess -4.3 L O2 Saturation 87.3 L ABG pH 7.32 L ABG HCO3 21.6 L ABG O2 Sat (Measured) 90.7 L Param Test YES A-a Gradient 94 a/A Ratio 0.36 Hemoglobin 10.9 Carboxyhemoglobin 2.8 Methemoglobin 0.9 L Temperature 37.0 POC O2 Flow Rate 28 Sodium Potassium 4.8 Chloride Carbon Dioxide Anion Gap BUN Creatinine Estimated GFR Glucose Lactic Acid Calcium Total Bilirubin AST ALT Alkaline Phosphatase Serum Total Protein Albumin Ur Collection Type CATH Urine Color YELLOW Urine Appearance CLOUDY Urine pH 8.0 Ur Specific [place] 1.010 Urine Protein TRACE Urine Ketones MODERATE Urine Blood 50 Urine Nitrite NEGATIVE Urine Bilirubin NEGATIVE Urine Urobilinogen NORMAL Ur Leukocyte Esterase TRACE Urine Microscopic RBC 2-5 Urine Microscopic WBC 50-100 Ur Epithelial Cells RARE Urine Bacteria MANY Hyaline Casts 0-2 Urine Glucose NEGATIVE Influenza Type A Ag NEGATIVE Influenza Type B Ag NEGATIVE RSV (PCR) NEGATIVE Specimen Received 07-04-18 1515 07/04/18 07/04/18 07/05/18 22:05 22:45 01:55 WBC RBC Hgb Hct MCV MCH MCHC RDW Plt Count MPV Segmented Neutrophils Band Neutrophils Lymphocytes (Manual) Monocytes (Manual) Eosinophils (Manual) Hypochromia Platelet Estimate RBC Morphology Poikilocytosis Basophilic Stippling Anisocytosis Macrocytosis Schistocytes D-Dimer 2579 H* Puncture Site pCO2 pO2 Base Excess O2 Saturation ABG pH ABG HCO3 ABG O2 Sat (Measured) Param Test A-a Gradient a/A Ratio Hemoglobin Carboxyhemoglobin Methemoglobin Temperature POC O2 Flow Rate Sodium Potassium Chloride Carbon Dioxide Anion Gap BUN Creatinine Estimated GFR Glucose Lactic Acid 4.5 H 0.7 Calcium Total Bilirubin AST ALT Alkaline Phosphatase Serum Total Protein Albumin Ur Collection Type Urine Color Urine Appearance Urine pH Ur Specific [place] Urine Protein Urine Ketones Urine Blood Urine Nitrite Urine Bilirubin Urine Urobilinogen Ur Leukocyte Esterase Urine Microscopic RBC Urine Microscopic WBC Ur Epithelial Cells Urine Bacteria Hyaline Casts Urine Glucose Influenza Type A Ag Influenza Type B Ag RSV (PCR) Specimen Received Microbiology 07/04/18 14:35 Blood Blood Culture - Preliminary NO GROWTH TO DATE 07/04/18 14:35 Blood Blood Culture - Preliminary NO GROWTH TO DATE 07/04/18 15:00 Catherized Urine Culture - Preliminary GRAM NEGATIVE ID AND SENSITIVITY PENDING Code(s): N39.0 - URINARY TRACT INFECTION, SITE NOT SPECIFIED (2) FUO (fever of unknown origin) Current Visit: Yes Status: Acute Onset Date: ~07/05/18 (3) Hypoxia Current Visit: Yes Status: Acute Onset Date: ~07/05/18 Code(s): R09.02 - HYPOXEMIA
[2018-07-05] MEDS: Bystolic 5 MG PO SCH (09:12)
[2018-07-05] MEDS: ROCEPHIN 1 Gm-D5w 50 ml Bag** 1 G/50 ML IVPB IV SCH (09:12)
[2018-07-05] MEDS ORDERED: ENOXAPARIN SODIUM SQ SCH (10:00)
--- NOTE | 2018-07-05 13:39 | XRAY ---
Indication: Elevated d-dimer. Multiple contiguous axial images obtained through the chest using 80 cc Isovue 370 contrast and PE protocol. Comparison: None There is good opacification of the pulmonary arteries. However mild respiration artifact limits evaluation of the more distal lobar and segmental branches. No central pulmonary embolus. Right main pulmonary artery measures 3.1 cm in diameter and the left measures 2.9 cm suggestive of pulmonary hypertension. Aorta is mildly arteriosclerotic without aneurysm/dissection. Heart is enlarged without pericardial effusion. No pathologic mediastinal/hilar lymphadenopathy. Small hiatal hernia. Examination of the lung parenchyma demonstrates moderate pulmonary emphysema predominantly in the upper lobes. Also moderate bilateral dependent atelectasis, bibasilar fibrosis/scarring, and tiny bilateral effusions. No suspicious pulmonary mass or infiltrate. Bone windows reveal mild degenerative changes throughout the spine, remote-appearing L1 compression fracture with 50% height loss, old right 2-3 rib fractures, and old right clavicle fracture. Limited upper abdomen demonstrates mild diffuse fatty liver and 1.3 cm left renal exophytic cyst. Impression: 1. Pulmonary embolus evaluation limited by respiration artifact. No large central pulmonary embolus. 2. Pulmonary emphysema and suspected pulmonary hypertension. 3. Cardiomegaly with tiny bilateral effusions. Rule out mild/early cardiac decompensation. 4. Incidental small hiatal hernia, old fractures, fatty liver, and left renal cyst. CTDI 14.81
[2018-07-05] MEDS: ENOXAPARIN SODIUM SQ SCH (21:59)
[2018-07-05] MEDS: Zocor 10MG PO SCH (21:59)
[2018-07-05] MEDS: ECOTRIN 81 MG PO SCH (21:59)
[2018-07-05] MEDS: Levaquin 250MG/50ML D5W 250 MG/50 ML BAG IV SCH (21:59)
[2018-07-06] MEDS: Sodium Chloride 0.9% 1000 ML 1,000 ML IV SCH ×2 (02:23→09:19)
--- NOTE | 2018-07-06 08:26 | PCM.NOTE ---
Date and Time: 07/06/18824 Subjective Assessment: doing much better - Review of Systems Constitutional: No Fever, No Chills Eyes: No Symptoms Ears, Nose, & Throat: No Symptoms Respiratory: No Cough, No Short Of Breath Cardiac: No Chest Pain, No Edema, No Syncope Abdominal/Gastrointestinal: No Abdominal Pain, No Nausea, No Vomiting, No Diarrhea Genitourinary Symptoms: No Dysuria Musculoskeletal: No Back Pain, No Neck Pain Skin: No Rash Neurological: No Dizziness, No Focal Weakness, No Sensory Changes Psychological: No Symptoms Endocrine: No Symptoms Hematologic/Lymphatic: No Symptoms Immunological/Allergic: No Symptoms Objective Exam General Appearance: no apparent distress, alert Neurologic Exam: alert, oriented x 3, cooperative, normal mood/affect, nml cerebellar function, sensation nml, No motor deficits Skin Exam: normal color, warm, dry Eye Exam: PERRL, EOMI, eyes nml inspection Ears, Nose, Throat Exam: normal ENT inspection, pharynx normal, moist mucous membranes Neck Exam: normal inspection, non-tender, supple, full range of motion Respiratory Exam: normal breath sounds, lungs clear, No respiratory distress Cardiovascular Exam: regular rate/rhythm, normal heart sounds Gastrointestinal/Abdomen Exam: soft, No tenderness, No mass Extremity Exam: normal inspection, normal range of motion Back Exam: normal inspection, normal range of motion, No CVA tenderness, No vertebral tenderness Pelvic Exam: deferred Rectal Exam: deferred OBJECTIVE DATA Vital Signs: Vital Signs - 24 hr Temp Pulse Resp BP Pulse Ox 07/06/18 07:23 95 07/06/18 04:20 98.3 F 68 18 118/65 95 07/05/18 23:27 98.0 F 72 22 132/63 98 07/05/18 20:04 95 07/05/18 19:13 98.2 F 68 22 108/53 96 07/05/18 15:57 98.1 F 07/05/18 13:09 98 F 68 22 137/65 96 07/05/18 10:59 97.9 F 07/05/18 10:49 99 Oxygen-Last 24 hours O2 Percentage 4 Liters = 36% O2 Percentage 4 Liters = 36% O2 Percentage 4 Liters = 36% O2 Percentage 5 Liters = 40% Pain Assessment - Last Documented Pain Intensity 0 Pain Scale Used 0-10 Pain Scale,FLACC Intake and Output: Intake & Output 07/03/18 07/04/18 07/05/18 07/06/18 11:59 11:59 11:59 11:59 Intake Total 6800 3288 Output Total 722 0890 Balance 6075 -412 Weight 63.4 kg 66.8 kg Radiology Exams: Radiology Procedures Category Date Time Status CHEST 1 VIEW (PORTABLE) Stat Exams 07/04/18 14:21 Completed CHEST WITH CONTRAST [CT] Urgent Exams 07/05/18 12:52 Completed Multi-Disciplinary Progress Notes: Multi-Disciplinary Progress Notes 07/05/18 11:24 Case Management Note by Layla Reilly DR. ROUNDED AND EVALUATED, DISCUSSED PLAN OF CARE AND TREATMENT WITH PT. PT REPORTS THAT SHE IS FEELING SOMEWHAT BETTER THIS MORNING. REPORTS THAT SHE HAD A "WILD" NIGHT. DR. SERRANO EDUCATED PT THAT SHE WOULD LIKELY BE HERE FOR A FEW MORE DAYS OF IV ABX AND WILL THEN DC HOME ON PO ABX. PT VERBALIZED UNDERSTANDING TO ALL INFORMATION, ALL QUESTIONS ANSWERED. DENIES ADDNL NEEDS AT PRESENT TIME. Initialized on 07/05/18 11:24 - END OF NOTE Assessment/Plan (1) UTI (urinary tract infection) Current Visit: Yes Status: Acute Onset Date: ~07/05/18 Qualifiers: Urinary tract infection type: acute pyelonephritis Qualified Code(s): N10 - Acute pyelonephritis Assessment & Plan: Chief Complaint Diagnosis UTI, HYPOXIA, FEVER Allergies Allergy/AdvReac Type Severity Reaction Status Date / Time penicillin G Allergy Verified 06/08/18 12:54 Vital Signs (Last 24 hours) Temp Pulse Resp BP Pulse Ox 07/06/18 07:23 95 07/06/18 04:20 98.3 F 68 18 118/65 95 07/05/18 23:27 98.0 F 72 22 132/63 98 07/05/18 20:04 95 07/05/18 19:13 98.2 F 68 22 108/53 96 07/05/18 15:57 98.1 F 07/05/18 13:09 98 F 68 22 137/65 96 07/05/18 10:59 97.9 F 07/05/18 10:49 99 Home Medications Medication Instructions Recorded Confirmed Last Taken Type Nebivolol HCl 5 MG [Bystolic 5 5 mg PO DAILY 07/04/18 07/04/18 07/04/18 History MG] 5 mg Current Medications Generic Name Dose Route Start Last Admin Trade Name Ciro PRN Reason Stop Dose Admin Acetaminophen 650 mg 07/04/18 16:18 07/04/18 23:17 Tylenol 325 Mg PO 08/03/18 16:17 650 mg Q4H PRN PRN Administration PAIN AND/OR FEVER Aspirin 81 mg 07/05/18 22:00 07/05/18 21:59 Ecotrin 81 Mg PO 08/04/18 21:59 81 mg HS MANYN Administration Enoxaparin Sodium 40 mg 07/04/18 23:29 07/05/18 21:59 Enoxaparin Sodium SQ 08/03/18 23:27 40 mg Q12HT MANNY Administration Ceftriaxone Sodium/Dextrose 1 g in 50 mls @ 100 mls/hr 07/05/18 10:00 09:12 Rocephin 1 Gm-D5w 50 Ml Bag IV 08/04/18 09:59 100 mls/hr Q24H10 MANNY Administration Levofloxacin/Dextrose 250 mg in 50 mls @ 50 mls/hr 07/05/18 22:00 07/05/18 21 :59 Levaquin 250mg/50ml D5w IV 08/04/18 21:59 50 mls/hr Q24H22 MANNY Administration Sodium Chloride 1,000 mls @ 150 mls/hr 07/05/18 01:00 07/06/18 02:23 Sodium Chloride 0.9% 1000 Ml IV 08/04/18 00:59 150 mls/hr .Q6H40M MANNY Administration Nebivolol 5 mg 07/05/18 10:00 07/05/18 09:12 Bystolic 5 Mg PO 08/04/18 09:59 5 mg DAILY MANNY Administration Simvastatin 10 mg 07/05/18 22:00 07/05/18 21:59 Zocor 10mg PO 08/04/18 21:59 10 mg HS MANNY Administration Discontinued Medications Generic Name Dose Route Start Last Admin Trade Name Ciro PRN Reason Stop Dose Admin Acetaminophen 650 mg 07/04/18 14:23 07/04/18 14:42 Tylenol 325 Mg PO 07/04/18 14:24 650 mg STAT STA Administration Acetaminophen Confirm 07/04/18 14:40 Tylenol 325 Mg Administered 07/04/18 14:41 Dose 650 mg .ROUTE .STK-MED ONE Aspirin 81 mg 07/04/18 22:00 07/04/18 21:10 Baby Aspirin 81 Mg Chew PO 07/04/18 22:01 81 mg ONCE ONE Administration Enoxaparin Sodium 40 mg 07/05/18 10:00 Enoxaparin Sodium SQ 08/04/18 09:59 Q12HT MANNY Sodium Chloride 1,000 mls @ 100 mls/hr 07/04/18 14:30 07/04/18 14:42 Sodium Chloride 0.9% 1000 Ml IV 08/03/18 14:29 100 mls/hr .Q10H MANNY Administration Sodium Chloride 1,000 mls @ 100 mls/hr 07/04/18 16:30 Sodium Chloride 0.9% 1000 Ml IV 08/03/18 16:29 .Q10H MANNY Ceftriaxone Sodium/Dextrose 1 g in 50 mls @ 100 mls/hr 07/04/18 16:22 16:25 Rocephin 1 Gm-D5w 50 Ml Bag IV 07/04/18 16:51 100 mls/hr STAT ONE 100 mls/hr Administration Ceftriaxone Sodium/Dextrose Confirm 07/04/18 16:24 Rocephin 1 Gm-D5w 50 Ml Bag Administered 07/04/18 16:25 Dose 1 g in 50 mls @ ud IV .STK-MED ONE Levofloxacin/Dextrose 750 mg in 150 mls @ 100 mls/hr 07/04/18 22:26 07/04/18 22:41 Levofloxacin 750mg/150ml D5w IV 07/04/18 23:55 100 mls/hr ONCE ONE Administration Sodium Chloride 1,000 mls @ 999 mls/hr 07/04/18 22:31 07/04/18 22:41 Sodium Chloride 0.9% 1000 Ml IV 07/04/18 23:31 999 mls/hr .Q1H1M STA Administration Sodium Chloride 1,000 mls @ 999 mls/hr 07/05/18 00:00 07/05/18 01:20 Sodium Chloride 0.9% 1000 Ml IV 07/05/18 03:00 999 mls/hr .Q1H1M MANNY Administration Simvastatin 10 mg 07/04/18 22:00 07/04/18 21:10 Zocor 10mg PO 07/04/18 22:01 10 mg ONCE ONE Administration Intake & Output (Last 24 hours) 07/03/18 07/04/18 07/05/18 07/06/18 11:59 11:59 11:59 11:59 Intake Total 6800 3288 Output Total 725 3700 Balance 6075 -412 Weight 63.4 kg 66.8 kg Microbiology Results (Last 24 hours) 07/04/18 15:00 Catherized Urine Culture - Final Escherichia Coli 07/04/18 14:35 Blood Blood Culture Gram Stain - Pending 07/04/18 14:35 Blood Blood Culture - Preliminary NO GROWTH TO DATE 07/04/18 14:35 Blood Blood Culture Gram Stain - Pending 07/04/18 14:35 Blood Blood Culture - Preliminary NO GROWTH TO DATE Orders (Last 24 hours) Category Date Time Status NPO Diet 07/05/18 09:35 Completed Regular Diet Diet 07/05/18 Lunch Active CHEST WITH CONTRAST [CT] Urgent Exams 07/05/18 12:52 Completed Aspirin EC 81 mg [Ecotrin 81 mg] Med 07/05/18 22:00 Active 81 mg PO HS Ceftriaxone 1 GM/50 ML PREMIX* [ROCEPHIN 1 Gm-D5w 50 ml Med 07/05/18 10:00 Active Bag] 1 g in 50 ml IV Q24H10 Enoxaparin Sodium [Enoxaparin Sodium] Med 07/05/18 10:00 Discontinued 40 mg SQ Q12HT Levofloxacin [Levaquin 250MG/50ML D5W] Med 07/05/18 22:00 Active 250 mg in 50 ml IV Q24H22 Nebivolol HCl 5 MG [Bystolic 5 MG] Med 07/05/18 10:00 Active 5 mg PO DAILY Simvastatin 10 mg [Zocor 10MG] Med 07/05/18 22:00 Active 10 mg PO HS Patient Care Notes (Last 24 hours) 07/05/18 11:24 Case Management Note by Layla Reilly DR. ROUNDED AND EVALUATED, DISCUSSED PLAN OF CARE AND TREATMENT WITH PT. PT REPORTS THAT SHE IS FEELING SOMEWHAT BETTER THIS MORNING. REPORTS THAT SHE HAD A "WILD" NIGHT. DR. SERRANO EDUCATED PT THAT SHE WOULD LIKELY BE HERE FOR A FEW MORE DAYS OF IV ABX AND WILL THEN DC HOME ON PO ABX. PT VERBALIZED UNDERSTANDING TO ALL INFORMATION, ALL QUESTIONS ANSWERED. DENIES ADDNL NEEDS AT PRESENT TIME. Initialized on 07/05/18 11:24 - END OF NOTE Code(s): N39.0 - URINARY TRACT INFECTION, SITE NOT SPECIFIED (2) FUO (fever of unknown origin) Current Visit: Yes Status: Resolved Onset Date: ~07/05/18 (3) Hypoxia Current Visit: Yes Status: Resolved Onset Date: ~07/05/18 Code(s): R09.02 - HYPOXEMIA
[2018-07-06] MEDS: ROCEPHIN 1 Gm-D5w 50 ml Bag** 1 G/50 ML IVPB IV SCH (09:21)
[2018-07-06] MEDS: ENOXAPARIN SODIUM SQ SCH ×2 (09:21→21:08)
[2018-07-06] MEDS: Bystolic 5 MG PO SCH (09:21)
[2018-07-06] MEDS: ECOTRIN 81 MG PO SCH (21:08)
[2018-07-06] MEDS: Zocor 10MG PO SCH (21:08)
[2018-07-06] MEDS: Levaquin 250MG/50ML D5W 250 MG/50 ML BAG IV SCH (21:08)
--- NOTE | 2018-07-07 05:12 | PCM.DS ---
Discharge Summary Date of Admission: 07/04/18 21:50 Admitting Physician: RODO SERRANO Primary Care Provider: RODO SERRANO Allergies Allergies penicillin G Allergy (Verified 06/08/18 12:54) Hospital Summary - Hospital Course Hospital Course: Chief Complaint Diagnosis UTI, HYPOXIA, FEVER Allergies Allergy/AdvReac Type Severity Reaction Status Date / Time penicillin G Allergy Verified 06/08/18 12:54 Vital Signs (Last 24 hours) Temp Pulse Resp BP Pulse Ox 07/06/18 23:55 99.3 F 84 22 137/60 96 07/06/18 21:30 97 07/06/18 19:46 97.9 F 70 24 144/70 97 07/06/18 16:00 98.1 F 68 24 150/67 95 07/06/18 12:00 97.5 F 72 22 129/61 93 L 07/06/18 08:00 98.7 F 78 22 150/70 91 L 07/06/18 07:23 95 Home Medications Medication Instructions Recorded Confirmed Last Taken Type Nebivolol HCl 5 MG [Bystolic 5 5 mg PO DAILY 07/04/18 07/04/18 07/04/18 History MG] 5 mg Current Medications Generic Name Dose Route Start Last Admin Trade Name Freq PRN Reason Stop Dose Admin Acetaminophen 650 mg 07/04/18 16:18 07/04/18 23:17 Tylenol 325 Mg PO 08/03/18 16:17 650 mg Q4H PRN PRN Administration PAIN AND/OR FEVER Aspirin 81 mg 07/05/18 22:00 07/06/18 21:08 Ecotrin 81 Mg PO 08/04/18 21:59 81 mg HS MANNY Administration Enoxaparin Sodium 40 mg 07/04/18 23:29 07/06/18 21:08 Enoxaparin Sodium SQ 08/03/18 23:27 40 mg Q12HT MANNY Administration Ceftriaxone Sodium/Dextrose 1 g in 50 mls @ 100 mls/hr 07/05/18 10:00 09:21 Rocephin 1 Gm-D5w 50 Ml Bag IV 08/04/18 09:59 100 mls/hr Q24H10 MANNY Administration Levofloxacin/Dextrose 250 mg in 50 mls @ 50 mls/hr 07/05/18 22:00 08/10/18 21 :08 Levaquin 250mg/50ml D5w IV 08/04/18 21:59 50 mls/hr Q24H22 MANNY Administration Sodium Chloride 1,000 mls @ 150 mls/hr 07/05/18 01:00 07/06/18 09:19 Sodium Chloride 0.9% 1000 Ml IV 08/04/18 00:59 150 mls/hr .Q6H40M MANNY Administration Nebivolol 5 mg 07/05/18 10:00 07/06/18 09:21 Bystolic 5 Mg PO 08/04/18 09:59 5 mg DAILY MANNY Administration Simvastatin 10 mg 07/05/18 22:00 07/06/18 21:08 Zocor 10mg PO 08/04/18 21:59 10 mg HS MANNY Administration Discontinued Medications Generic Name Dose Route Start Last Admin Trade Name Freq PRN Reason Stop Dose Admin Acetaminophen 650 mg 07/04/18 14:23 07/04/18 14:42 Tylenol 325 Mg PO 07/04/18 14:24 650 mg STAT STA Administration Acetaminophen Confirm 07/04/18 14:40 Tylenol 325 Mg Administered 07/04/18 14:41 Dose 650 mg .ROUTE .STK-MED ONE Aspirin 81 mg 07/04/18 22:00 07/04/18 21:10 Baby Aspirin 81 Mg Chew PO 07/04/18 22:01 81 mg ONCE ONE Administration Enoxaparin Sodium 40 mg 07/05/18 10:00 Enoxaparin Sodium SQ 08/04/18 09:59 Q12HT MANNY Sodium Chloride 1,000 mls @ 100 mls/hr 07/04/18 14:30 07/04/18 14:42 Sodium Chloride 0.9% 1000 Ml IV 08/03/18 14:29 100 mls/hr .Q10H MANNY Administration Sodium Chloride 1,000 mls @ 100 mls/hr 07/04/18 16:30 Sodium Chloride 0.9% 1000 Ml IV 08/03/18 16:29 .Q10H MANNY Ceftriaxone Sodium/Dextrose 1 g in 50 mls @ 100 mls/hr 07/04/18 16:22 16:25 Rocephin 1 Gm-D5w 50 Ml Bag IV 07/04/18 16:51 100 mls/hr STAT ONE 100 mls/hr Administration Ceftriaxone Sodium/Dextrose Confirm 07/04/18 16:24 Rocephin 1 Gm-D5w 50 Ml Bag Administered 07/04/18 16:25 Dose 1 g in 50 mls @ ud IV .STK-MED ONE Levofloxacin/Dextrose 750 mg in 150 mls @ 100 mls/hr 07/04/18 22:26 07/04/18 22:41 Levofloxacin 750mg/150ml D5w IV 07/04/18 23:55 100 mls/hr ONCE ONE Administration Sodium Chloride 1,000 mls @ 999 mls/hr 07/04/18 22:31 07/04/18 22:41 Sodium Chloride 0.9% 1000 Ml IV 07/04/18 23:31 999 mls/hr .Q1H1M STA Administration Sodium Chloride 1,000 mls @ 999 mls/hr 07/05/18 00:00 07/05/18 01:20 Sodium Chloride 0.9% 1000 Ml IV 07/05/18 03:00 999 mls/hr .Q1H1M MANNY Administration Simvastatin 10 mg 07/04/18 22:00 07/04/18 21:10 Zocor 10mg PO 07/04/18 22:01 10 mg ONCE ONE Administration Intake & Output (Last 24 hours) 07/04/18 07/05/18 07/06/18 07/07/18 11:59 11:59 11:59 11:59 Intake Total 6800 3288 1297 Output Total 725 3700 625 Balance 6075 -412 672 Weight 63.4 kg 66.8 kg Microbiology Results (Last 24 hours) 07/04/18 15:00 Catherized Urine Culture - Final Escherichia Coli Orders (Last 24 hours) Category Date Time Status Qualify for Home Oxygen TODAY RT 07/06/18 08:50 Active Patient Care Notes (Last 24 hours) 07/06/18 15:31 Nursing Note by Jayne Gu Pt desats to 84% on O2 2l nc after going to bathroom. Oxygen was on entire time. Short of breath upon exertion and talking. O2 increased to 3L. Initialized on 07/06/18 15:31 - END OF NOTE 07/06/18 11:13 Nursing Note by D'Del Rosario,Jayne Norris catheter discontinued per protocal. 10cc of balloon water taken out and cath intact. Pt tolerated will Pt encouraged to call for assist up to bathroom. States understanding. Denies pain at this time. Pt also stated understanding she will need home O2 per Resp. therapy evaluation. Initialized on 07/06/18 11:13 - END OF NOTE 07/06/18 10:00 (created 07/06/18 10:35) Case Management Note by Layla Reilly VISITED WITH PT AND REVIEWED DISCHARGE PLAN. REPORTS THAT SHE IS PLANNING TO RETURN HOME TO PRE EPISODIC LEVEL OF [place], INDEPENDENT WITH ALL ADL'S. REPORTS THAT SHE IS STILL WORKING. WILL BE WORKING AT [employer] AGAIN, STARTING June FROM NOON - 5PM ON THE WEEKENDS. DISCUSSED THAT PT DOES QUALIFY FOR HOME OXYGEN. REVIEWED AREA PROVIDERS. PT REPORTS THAT SHE WANTS TO USE [facility] FOR ALL HOME OXYGEN NEEDS. NO ADDNL NEEDS IDENTIFIED AT PRESENT. WILL FOLLOW FOR ALL DC NEEDS. Initialized on 07/06/18 10:35 - END OF NOTE 07/06/18 09:21 Respiratory Note by Radha Ortiz CLARIFICATION-PT'S O2 SAT ON ROOM AIR WHILE AT REST WAS 87%. PT WAS THEN PLACED ON 2LPM NASAL CANNULA. O2 SAT INCREASED TO 94%. Initialized on 07/06/18 09:21 - END OF NOTE 07/06/18 09:20 Respiratory Note by Radha Ortiz PT'S O2 SAT ON ROOM AIR WAS 87%. PT WAS THEN PLACED ON 2LPM NASAL CANNULA. O2 SAT 94%. Initialized on 07/06/18 09:20 - END OF NOTE 07/06/18 08:32 Nursing Note by Kisha Gomez VITAL SIGNS PER ANAMIKA SINGLETON Initialized on 07/06/18 08:32 - END OF NOTE - Vitals & Intake/Output Vital Signs: Vital Signs Temperature 99.3 F 07/06/18 23:55 Pulse Rate 84 07/06/18 23:55 Respiratory Rate 22 07/06/18 23:55 Blood Pressure 137/60 07/06/18 23:55 O2 Sat by Pulse Oximetry 96 07/06/18 23:55 Oxygen-Last Documented O2 Percentage 3 Liters = 32% Intake & Output: Intake & Output 07/04/18 07/05/18 07/06/18 07/07/18 11:59 11:59 11:59 11:59 Intake Total 4660 4830 1297 Output Total 728 9510 625 Balance 6075 -412 672 Weight 63.4 kg 66.8 kg - Lab Result Diagrams: 07/04/18 14:35 07/04/18 14:35 Micro Results-Entire Visit: Microbiology 07/04/18 15:00 Urine Culture - Final Catherized Escherichia Coli 07/04/18 14:35 Blood Culture - Preliminary Blood NO GROWTH TO DATE 07/04/18 14:35 Blood Culture - Preliminary Blood NO GROWTH TO DATE - Radiology Exams Ordered Rad Exams-Entire Visit: Radiology Procedures Category Date Time Status CHEST WITH CONTRAST [CT] Urgent Exams 07/05/18 12:52 Completed - Procedures and Test Procedures and Tests throughout Hospitalization: Therapy Orders & Screens 07/04/18 16:18 Oxygen NASAL CANNULA 2 lpm Comment: 07/04/18 17:38 Respiratory Therapy Assessment ONCE Comment: Diagnosis: FUO 07/04/18 23:14 Oxygen OXYMASK-LPM 5% Comment: Diagnosis: Hypoxia. UTI. 07/06/18 08:50 Qualify for Home Oxygen TODAY Comment: Diagnosis: UTI, HYPOXIA, FEVER Discharge Exam General Appearance: no apparent distress, alert Neurologic Exam: alert, oriented x 3, cooperative, normal mood/affect, nml cerebellar function, sensation nml, No motor deficits Skin Exam: normal color, warm, dry Eye Exam: PERRL, EOMI, eyes nml inspection Ears, Nose, Throat Exam: normal ENT inspection, pharynx normal, moist mucous membranes Neck Exam: normal inspection, non-tender, supple, full range of motion Respiratory Exam: normal breath sounds, lungs clear, No respiratory distress Cardiovascular Exam: regular rate/rhythm, normal heart sounds Gastrointestinal/Abdomen Exam: soft, No tenderness, No mass Extremity Exam: normal inspection, normal range of motion Back Exam: normal inspection, normal range of motion, No CVA tenderness, No vertebral tenderness Pelvic Exam: deferred Rectal Exam: deferred Final Diagnosis/Problem List - Final Discharge Diagnosis/Problem (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 Stop: 08/04/18 21:59 Last Admin: 07/06/18 21:08 Dose: 81 mg Enoxaparin Sodium (Enoxaparin Sodium) 40 mg SQ Q12HT [facility] Stop: 08/03/18 23:27 Last Admin: 07/06/18 21:08 Dose: 40 mg Ceftriaxone Sodium/Dextrose (Rocephin 1 Gm-D5w 50 Ml Bag) 1 g in 50 mls @ 100 mls/hr IV Q24H10 [facility] Stop: 08/04/18 09:59 Last Admin: 07/06/18 09:21 Dose: 100 mls/hr Levofloxacin/Dextrose (Levaquin 250mg/50ml D5w) 250 mg in 50 mls @ 50 mls/hr IV Q24H22 [facility] Stop: 08/04/18 21:59 Last Admin: 07/06/18 21:08 Dose: 50 mls/hr Sodium Chloride (Sodium Chloride 0.9% 1000 Ml) 1,000 mls @ 150 mls/hr IV .Q6H40M [facility] Stop: 08/04/18 00:59 Last Admin: 07/06/18 09:19 Dose: 150 mls/hr Nebivolol (Bystolic 5 Mg) 5 mg PO DAILY [facility] Stop: 08/04/18 09:59 Last Admin: 07/06/18 09:21 Dose: 5 mg Simvastatin (Zocor 10mg) 10 mg PO [facility] Stop: 08/04/18 21:59 Last Admin: 07/06/18 21:08 Dose: 10 mg Intake & Output 07/06/18 0818 11:59 11:59 Intake Total 8828 1297 Output Total 2480 625 Balance -412 672 Weight 66.8 kg Orders 07/06/18 08:50 Qualify for Home Oxygen TODAY Microbiology 07/04/18 15:00 Catherized Urine Culture - Final Escherichia Coli (2) UTI (urinary tract infection) Current Visit: Yes Status: Acute Onset Date: ~07/05/18 (3) FUO (fever of unknown origin) Current Visit: Yes Status: Resolved Onset Date: ~07/05/18 (4) Hypoxia Current Visit: Yes Status: Resolved Onset Date: ~07/05/18 - Discharge Disposition: Home, Self-Care Condition: Fair Prescriptions: New Levofloxacin [Levaquin] 250 mg PO DAILY #5 tablet Continue Aspirin 81 gm Chew [Baby Aspirin 81 mg Chew] 81 mg PO HS Atorvastatin Calcium 10 mg PO HS Nebivolol HCl 5 MG [Bystolic 5 MG] 5 mg PO DAILY Follow up with: RODO SERRANO MD [Primary Care Provider] - 07/16/18 10:15 am (at [facility])
[2018-07-07 07:08] VITALS: O2SAT 95
[2018-07-07 07:24] VITALS: BP 153/74; PULSE 74
[2018-07-07] MEDS: Bystolic 5 MG PO SCH (09:07)
== END 2018-07-07 10:10 | disposition home or self-care (01) | DRG 191 ==
LOC: ED 14:06 → MED SURG 17:19 → OBSVTOIN 21:50
PROVIDERS: ADMIT General Practice; ATTEND General Practice
DX: J44.9 Chronic obstructive pulmonary disease, unspecified (principal); N10 Acute pyelonephritis; R50.9 Fever, unspecified; R09.02 Hypoxemia; N39.0 Urinary tract infection, site not specified; I10 Essential (primary) hypertension; M19.90 Unspecified osteoarthritis, unspecified site; E78.00 Pure hypercholesterolemia, unspecified; Z79.899 Other long term (current) drug therapy
CPT/HCPCS: 36000; 36415; 36600; 71045; 71260; 80053; 81000; 82375; 82803; 83605; 85025; 85379; 87040; 87077; 87086; 87186; 87631; 93041; 94760; 94762; 96360; 96365; 99285; P9612; J0696; J1650; J1956; A9270-GY

== ENCOUNTER 2019-02-28 13:15 | Emergency (ER) | payer MEDICARE ==
--- NOTE | 2019-02-28 13:51 | ERPHSYRPT ---
- History of Present Illness Time Seen by Provider: 02/28/19 13:38 Source: patient Exam Limitations: no limitations Patient Subjective Stated Complaint: pt slipped and fell on a rug in her house on , she states she landed on hard wood floor,co pain to right rib area and contusion to back of head Triage Nursing Assessment: pt arrived per wc, alert, resp easy, skin w/d/p. wears home o2, no bruising or brasions noted, has contusion to back of head Physician History: Pt states, she slipped on carpet and fell at home 2 days ago, fell backward, hit the back of her head, and her right lower ribs, denies LOC, severe headaches , but vomited once today. She denies difficulty breathing, productive cough, abdominal pain, SOB, fever, other complaints. Occurred: days ago (2) Reason for Fall: slipped Injuries/Pain Location: head, back Loss of Consciousness: no loss of consciousness Quality: sharpness Severity of Pain-Max: moderate Severity of Pain-Current: moderate Modifying Factors: Improves With: immobilization, movement, other (breathing, coughing) Associated Symptoms (Fall): back pain, vomiting (once today), No shortness of breath, No trouble walking Allergies/Adverse Reactions: penicillin G Allergy (Verified 02/28/19 13:32) Home Medications: Aspirin 81 gm Chew [Baby Aspirin 81 mg Chew] 81 mg PO HS 06/08/18 [History ] Atorvastatin Calcium 10 mg PO HS 06/08/18 [History] Nebivolol HCl 5 MG [Bystolic 5 MG] 5 mg PO DAILY 07/04/18 [History] Hx Tetanus, Diphtheria Vaccination/Date Given: No Hx Influenza Vaccination/Date Given: Yes Hx Pneumococcal Vaccination/Date Given: Yes Immunizations Up to Date: Yes - Review of Systems Constitutional: No Symptoms Eyes: No Symptoms Ears, Nose, & Throat: No Symptoms Respiratory: No Symptoms Cardiac: No Symptoms Abdominal/Gastrointestinal: Vomiting (once today) Genitourinary Symptoms: No Symptoms Musculoskeletal: Back Pain Neurological: No Symptoms All Other Systems: Reviewed and Negative - Past Medical History Pertinent Past Medical History: Yes Neurological History: No Pertinent History ENT History: Cataracts, Macular Degeneration Cardiac History: High Cholesterol, Hypertension Respiratory History: No Pertinent History Endocrine Medical History: No Pertinent History Musculoskeletal History: Arthritis GI Medical History: No Pertinent History History: No Pertinent History Psycho-Social History: No Pertinent History Female Reproductive Disorders: No Pertinent History - Past Surgical History Past Surgical History: Yes Neuro Surgical History: No Pertinent History, Brain Shunt Cardiac: No Pertinent History Respiratory: No Pertinent History Gastrointestinal: No Pertinent History Musculoskeletal: No Pertinent History Female Surgical History: Hysterectomy - Social History Smoking Status: Former smoker Exposure to second hand smoke: No Alcohol Use: None Drug Use: none Patient Lives Alone: No - Female History Hx Last Menstrual Period: post Hx Now: No - Nursing Vital Signs Nursing Vital Signs: Initial Vital Signs Pulse Rate 76 02/28/19 13:24 Respiratory Rate 20 02/28/19 13:24 Blood Pressure 150/80 02/28/19 13:24 O2 Sat by Pulse Oximetry 97 02/28/19 13:24 Pain Scale Pain Intensity 0 - Terrie Coma Score Best Eye Response ([place]): (4) open spontaneously Best Verbal Response ([place]): (5) oriented Best Motor Response ([place]): (6) obeys commands [place] Total: 15 - Physical Exam General Appearance: no apparent distress Head Injury: swelling (small, soft tissue on mid oiccipital area, no scalp injury) Eye Exam: PERRL/EOMI, eyes nml inspection ENT Exam: airway nml Neck Exam: supple, trachea midline, normal alignment, normal inspection, No pain on movement of neck, No tenderness Respiratory/Chest Exam: normal breath sounds, rib tenderness (right posterior middle ribs next to the mid thoracic spine, no swelling, crepitations or subcutaneous emphysema.), No chest tenderness, No respiratory distress, No ecchymosis, No crepitus, No decreased breath sounds, No rales, No rhonchi, No wheezing Cardiovascular Exam: normal heart sounds, regular rate/rhythm, normal peripheral pulses, No murmur, No edema, No JVD Gastrointestinal Exam: soft, normal bowel sounds, No tenderness, No distention, No mass, No guarding, No ecchymosis, No rebound, No organomegaly Back Exam: decreased range of motion, other (kyphotic), No CVA tenderness, No vertebral tenderness, No rash, No muscle spasm, No point tenderness Extremity Exam: normal inspection, pelvis stable Peripheral Pulses: dorsalis-pedis (R): 2+, dorsalis-pedis (L): 2+ Neurologic Exam: alert, oriented x 3, cooperative, normal mood/affect, sensation nml, No motor deficits, No motor weakness Skin Exam: normal color, warm, dry, No rash SpO2 Interpretation: normal SpO2: 97 O2 Delivery: Room Air - Course Nursing assessment & vital signs reviewed: Yes - Radiology Exams Right Ribs X-ray Interpretation: Reviewed by me, Negative, Other (old fractures) Chest X-ray Interpretation: Reviewed by me, Other (T10 compression (new)) - CT Exams Head CT Interpretation: Negative, Tele-radiologist Report Ordered Tests: Active Orders 24 hr Category Date Time Status CHEST 2 VIEWS (PA AND LAT) Stat Exams 02/28/19 13:44 Completed HEAD WITHOUT CONTRAST [CT] Stat Exams 02/28/19 13:43 Completed RIBS UNILATERAL Stat Exams 02/28/19 13:43 Completed - Progress Progress: unchanged Progress Note: 02/28/19 15:07 We discussed her results and the plan to discharge her on Tylenol with codeine, advised to rest x 3-4 days, apply moist heat to her back and follow up with her physician in 1 3-4 days. Counseled pt/family regarding: diagnosis, need for follow-up, rad results - Departure Departure Disposition: Home Clinical Impression: Thoracic vertebral fracture Qualifiers: Encounter type: initial encounter Thoracic vertebra fracture level: T10 Fracture type: closed Fracture morphology: wedge compression Qualified Code(s): S22.070A - Wedge compression fracture of T9-T10 vertebra, initial encounter for closed fracture Condition: Stable Critical Care Time: No Referrals: RODO SERRANO MD [Primary Care Provider] - Instructions: Preventing Falls Additional Instructions: Rest x 3-4 days, apply moist heat to back, and follow up with your physician in 34- days, return if severe pain, shortness of breath, vomiting or fever> 102 F! Prescriptions: Acetaminophen with Codeine [Tylenol with Codeine #3 Tablet] 1 each PO TID PRN # 10 tablet PRN Reason: Pain
--- NOTE | 2019-02-28 14:13 | XRAY ---
Indication: Posterior head injury following fall 2 days ago. Multiple contiguous axial images obtained through the head without contrast. Comparison: June 08, 2018. Again age-appropriate global atrophy and mild periventricular degenerative micro-ischemia bilaterally. No acute intracranial hemorrhage, abnormal extra-axial fluid collection, or mass effect. Fourth ventricle is midline without hydrocephalus. Bony calvarium intact. Tiny right posterior scalp hematoma/swelling. Visualized paranasal sinuses and mastoid air cells are clear. Impression: Tiny posterior scalp hematoma/swelling. Otherwise nonacute senile brain. CT DI 85.32
[2019-02-28 14:30] VITALS: BP 147/72; PULSE 71
--- NOTE | 2019-02-28 14:30 | XRAY ---
Indication: Pain following fall. Comparison: None 2 views of the right ribs demonstrates osteopenia, old 3-5 rib fractures, old clavicle shaft fracture, moderate acromioclavicular degenerative arthropathy, mild double curvature scoliosis, old T10/L1 compression fractures, and aortic calcifications. No other bony, articular, or soft tissue abnormalities. Impression: Nonacute right ribs with chronic features.
--- NOTE | 2019-02-28 14:36 | XRAY ---
Indication: Short of breath and right lower rib pain. Status post fall. Comparison: July 04, 2018. PA/lateral chest again hyperinflated and clear. Heart is not enlarged. Aorta remains arteriosclerotic and tortuous. Bony thorax again demonstrates osteopenia, degenerative changes, mild osteopenia, old right rib fractures, and old right clavicle fracture. New finding T10 compression deformity with approximately 25% height loss. Impression: 1. Nonacute hyperinflated chest with chronic features. 2. New finding T10 compression deformity.
[2019-02-28 15:12] VITALS: O2SAT 97
== END 2019-02-28 15:34 | disposition home or self-care (01) ==
LOC: ED 13:15
DX: S22.070A Wedge compression fracture of T9-T10 vertebra, initial encounter for closed fracture (principal); S00.83XA Contusion of other part of head, initial encounter; R07.81 Pleurodynia; E78.00 Pure hypercholesterolemia, unspecified; I10 Essential (primary) hypertension; M19.90 Unspecified osteoarthritis, unspecified site; Z79.899 Other long term (current) drug therapy; W01.198A Fall on same level from slipping, tripping and stumbling with subsequent striking against other object, initial encounter; Y93.9 Activity, unspecified; Y92.009 Unspecified place in unspecified non-institutional (private) residence as the place of occurrence of the external cause
CPT/HCPCS: 70450; 71046; 71100; 99284